=== PATIENT | female | born 1980 | race Two or more races ===

== ENCOUNTER 2024-10-12 14:31 | Inpatient (IN) | payer MEDICAID, OTHER ==
[~2024-10-12] VITALS: Ht 160 cm; Wt 70.0 kg
[2024-10-12] MEDS: MORPHINE SULFATE 4 MG/ML SYR/VIAL IV ONE ×3 (15:06→23:03)
[2024-10-12] MEDS: ONDANSETRON HCL 4 MG/2 ML VIAL IV ONE ×3 (15:06→23:02)
--- NOTE | 2024-10-12 15:13 | ED.PDOC ---
GI ASSESSMENT HPI Comments 43 y/o F, BIBA, with PMHx of uterine fibroids and ovarian cyst presents to the ED for CC of abdominal pain. 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 Per EMS, upon arrival to scene patient was found profusely diaphoretic and lethargic c/o 10/10 abdominal pain. In route to the ED, patient was given 4mg of Zofran IV and 1g Tylenol with no improvement of symptoms. Patient relays, that she does not know if she is currently and is concerned of possible ectopic , d/t x2 previous miscarriages in the past. Patient denies dizziness, headache, abdominal cramping, vaginal discharge, or melena. No other symptoms or modifying factors are present at this time. Time Seen by MD: 14:45 Reviewed Notes: Nurses Notes, Plastic Mixer Notes, Medications, Allergies Allergies: Coded Allergies: NO KNOWN ALLERGIES (Unverified , 10/12/24) Information Source: Patient Mode of Arrival: EMS Timing: Minutes Duration: Since onset Prehospital treatment: None Quality: None Vomitus: Watery Stool: Normal Severity: Moderate Recent: None Recent Hx of: None Pain Location: LLQ Modifying Factors: Nothing Associated sign and symptoms: Nausea, Vomiting, Abdominal Pain Past Medical History PAST MEDICAL HISTORY: Anemia Surgical History: Denies all surgeries FEED GRINDER History: Ovarian Cysts, Uterine Fibroids Family History Family History: Family hx of DM, Family hx of heart clarissa Social History Smoker: Cigarettes Alcohol: Occasionally Drugs: Marijuana Lives In: Home Constitutional: reports: sweats; denies: chills, diaphoresis, fatigue, fever, malaise, weakness, others EENTM: denies: blurred vision, double vision, ear bleeding, ear discharge, ear drainage, ear pain, ear ringing, eye pain, eye redness, hearing loss, mouth pain, mouth swelling, nasal discharge, nose bleeding, nose congestion, nose pain, photophobia, tearing, throat pain, throat swelling, voice changes, others Respiratory: denies: cough, hemoptysis, orthopnea, SOB at rest, shortness of breath, SOB with excertion, stridor, wheezing, others Cardiovascular: denies: chest pain, dizzy spells, diaphoresis, Dyspnea on exertion, edema, irregular heart beat, left arm pain, lightheadedness, palpitations, PND, syncope, others Gastrointestinal: reports: abdominal pain, nausea, vomiting; denies: abdomen distended, blood streaked bowels, constipated, diarrhea, dysphagia, difficulty swallowing, hematemesis, melena, poor appetite, poor fluid intake, rectal bl eeding, rectal pain, others Genitourinary: denies: abnormal vagina bleeding, burning, dyspareunia, dysuria, flank pain, frequency, hematuria, incontinence, pain, , vagina discharge, urgency, others Neurological: denies: dizziness, fainting, headache, left sided numbness, left sided weakness, numbness, paresthesia, pre-existing deficit, right sided numbness, right sided weakness, seizure, speech problems, tingling, tremors, weakness, others Musculoskeletal: denies: back pain, gout, joint pain, joint swelling, muscle pain, muscle stiffness, neck pain, others Integumetry: denies: bruises, change in color, change in hair/nails, dryness, laceration, lesions, lumps, rash, wounds, others Allergic/Immunocompromised: denies: Difficulty Healing, Frequent Infections, Hives, Itching, others Hematologic/Lymphatic: denies: anemia, blood clots, easy bleeding, easy bruising, swollen glands, others Endocrine: denies: excessive hunger, excessive sweating, excessive thirst, excessive urination, flushing, intolerance to cold, intolerance to heat, unexplained weight gain, unexplained weight loss, others Psychiatric: denies: anxiety, bipolar disorder, depression, hopeless, panic disorder, schizophrenia, sleepless, suicidal, others All Other Systems: Reviewed and Negative Physical Exam General Appearance: Moderate Distress HEENT: Normal ENT Inspection, Pharynx Normal, TMs Normal Neck: Full Range of Motion, Non-Tender, Normal, Normal Inspection Respiratory: Chest Non-Tender, Lungs Clear, No Accessory Muscle Use, No Respiratory Distress, Normal Breath Sounds Cardiovascular: No Edema, No JVD, No Murmur, No Gallop, Normal Peripheral Pulses, Regular Rate/Rhythm Breast Exam: Deferred Gastrointestinal: No Organomegaly, No Pulsatile Mass, Normal Bowel Sounds, Soft, Suprapubic, Tenderness Genitalia: Deferred Pelvic: Deferred Rectal: Deferred Extremities: No calf tenderness, Normal capillary refill, Normal inspection, Normal range of motion, Non-tender, No pedal edema Musculoskeletal : Apperance: Normal Neurologic: Alert, television host II-XII nml as Tested, Motor Weakness, Normal Affect, Normal Mood, No Sensory Deficits Cerebellar Function: Normal Reflexes: Normal Skin: Dry, Normal Color, Warm Lymphatic: No Adenopathy Was a procedure done? Was a procedure done?: No GI differential Dx Differential Diagnosis: Diverticular disease, Inflammatory BD, UTI, Urolithiasis, , Other (UTERINE FIBROID, ECTOPIC ) X-Ray, Labs, Meds, VS Vital Signs Date Time Temp Pulse Resp B/P (MAP) Pulse Ox O2 Delivery O2 Flow Rate FiO2 10/12/24 17:22 68 17 117/60 10/12/24 15:36 68 17 117/60 10/12/24 15:35 98.1 68 17 117/60 (79) 98 98.1 10/12/24 15:06 106 24 136/116 10/12/24 15:05 98.1 106 24 136/116 (123) 98 98.1 10/12/24 14:31 98.1 106 24 136/116 98 98.1 Lab Test 10/12/24 15:01 Range/Units White Blood Count 9.6 4.4-10.8 10^3/uL Red Blood Count 5.10 4.0-5.20 10^6/uL Hemoglobin 8.3 L 12.2-16.2 g/dL Hematocrit 28.6 L 36.0-46.0 % Mean Corpuscular Volume 56.2 L 80.0-100.0 fL Mean Corpuscular Hemoglobin 16.4 L 28.0-32.0 pg Mean Corpuscular Hemoglobin Concent 29.1 L 32.0-36.0 g/dL Red Cell Distribution Width 21.2 H 11.8-14.3 % Platelet Count 526 H 140-450 10^3/uL Mean Platelet Volume 8.1 6.9-10.8 fL Neutrophils (%) (Auto) 77.1 37.0-80.0 % Lymphocytes (%) (Auto) 14.2 10.0-50.0 % Monocytes (%) (Auto) 4.1 0.0-12.0 % Eosinophils (%) (Auto) 4.1 0.0-7.0 % Basophils (%) (Auto) 0.5 0.0-2.0 % Neutrophils # (Auto) 7.4 1.6-8.6 10 ^3/uL Lymphocytes # (Auto) 1.4 0.4-5.4 10 ^3/uL Monocytes # (Auto) 0.4 0-1.3 10 ^3/uL Eosinophils # (Auto) 0.4 0-0.8 10 ^3/uL Basophils # (Auto) 0 0-0.2 10 ^3/uL Nucleated Red Blood Cells 0.0 % Platelet Estimate Increased Hypochromasia (manual) Marked Anisocytosis (manual) Slight Microcytosis Marked Sodium Level 141 136-145 mmol/L Potassium Level 3.5 3.5-5.1 mmol/L Chloride Level 108 H 98-107 mmol/L Carbon Dioxide Level 20 20-31 mmol/L Anion Gap 13 5-15 Blood Urea Nitrogen 8 L 9-23 mg/dL Creatinine 0.62 0.550-1.02 mg/dL Glomerular Filtration Rate Calc 115 >90 mL/min BUN/Creatinine Ratio 12.9 10.0-20.0 Serum Glucose 115 H 74-106 mg/dL Calcium Level 8.5 L 8.7-10.4 mg/dL Beta HCG, Quantitative 0.1 L 1.5-4.2 mIU/mL Current Medications Medications (Trade) Dose Ordered Sig/Hay Route Start Time Stop Time Status Last Admin Ondansetron HCl (Zofran) 4 mg ONCE ONCE IV 10/12/24 14:45 10/12/24 14:47 DC 10/12/24 15:06 Morphine Sulfate 4 mg ONCE ONCE IV 10/12/24 14:45 10/12/24 14:47 DC 10/12/24 15:06 Morphine Sulfate 4 mg ONCE ONCE IV 10/12/24 17:30 10/12/24 17:31 DC 10/12/24 17:22 Ondansetron HCl (Zofran) 4 mg ONCE ONCE IV 10/12/24 17:30 10/12/24 17:31 DC 10/12/24 17:22 IV Hep-Lock was established The patient was given Zofran 4 mg IV push for the nausea and vomiting The patient was given morphine 4 mg IV push for the pain The patient is still having persistent pain so the dose of morphine and Zofran was repeated The patient's CBC shows a hemoglobin of 8.3 and hematocrit 28.6 The chemistry panel is within normal limits The pelvic ultrasound shows: PELVIC US: IMPRESSION: 1. Small intramural fibroid in the uterus measuring 1.9 x 2.5 x 1.2 cm 2. Follicles in both ovaries. We are consulting Dr. Steele at this time. Images Reviewed?: Images reviewed and evaluated by me Time of 1ST Reevaluation: 15:15 Reevaluation 1ST: Unchanged Patient Education/Counseling: Diagnosis, Treatment, Prognosis Family Education/Counseling: No Family Present SEPSIS Sepsis Screen Physician Orders Urinalysis (10/12/24 14:45) Heplock Iv (10/12/24 14:45) Pelvic (10/12/24 14:45) Transvaginal Us Non Ob (10/12/24 16:22) Vital Signs Date Time Temp Pulse Resp B/P (MAP) Pulse Ox O2 Delivery O2 Flow Rate FiO2 10/12/24 17:22 68 17 117/60 10/12/24 15:36 68 17 117/60 10/12/24 15:35 98.1 68 17 117/60 (79) 98 98.1 10/12/24 15:06 106 24 136/116 10/12/24 15:05 98.1 106 24 136/116 (123) 98 98.1 10/12/24 14:31 98.1 106 24 136/116 98 98.1 Laboratory Tests Test 10/12/24 15:01 White Blood Count 9.6 10^3/uL (4.4-10.8) Medications Medications Dose Ordered Sig/Hay Route Start Time Stop Time Status Last Admin Dose Admin Morphine Sulfate 4 mg ONCE ONCE IV 10/12/24 14:45 10/12/24 14:47 DC 10/12/24 15:06 Morphine Sulfate 4 mg ONCE ONCE IV 10/12/24 17:30 10/12/24 17:31 DC 10/12/24 17:22 Ondansetron HCl 4 mg ONCE ONCE IV 10/12/24 14:45 10/12/24 14:47 DC 10/12/24 15:06 Ondansetron HCl 4 mg ONCE ONCE IV 10/12/24 17:30 10/12/24 17:31 DC 10/12/24 17:22 Departure 1 Departure Time of Disposition: 17:48 Impression: Primary Impression: Intractable abdominal pain Additional Impressions: Abnormal vaginal bleeding Severe anemia Uterine fibroid Qualified Codes: D25.1 - Intramural leiomyoma of uterus Disposition: ADMITTED INPATIENT Admit to: Med Surg Condition: Fair Critical Care Note Critical Care Time?: No Stability Stability form required: Yes Unstable for transfer: ED Physician Assesment (Clinical assesment) Heart Score Heart Score: Heart Score Response (Comments) Value History N/A 0 EKG N/A 0 Age N/A 0 Risk Factors N/A 0 Troponin N/A 0 Total 0 I personally scribed for NATALIE SCHNEIDER MD ([email or web address]) on 10/12/24 at 15:13. Electronically submitted by Odalys Aleman ([email or web address]). I personally scribed for NATALIE SCHNEIDER MD ([email or web address]) on 10/12/24 at 15:13. Electronically submitted by Odalys Aleman ([email or web address]). I personally scribed for NATALIE SCHNEIDER MD ([email or web address]) on 10/12/24 at 17:51. Electronically submitted by Odalys Aleman ([email or web address]). NATALIE SCHNEIDER MD Oct 12, 2024 15:13
[2024-10-12 15:24] LABS: Mean Corpuscular Hemoglobin 16.4 pg (28.0-32.0); Nucleated Red Blood Cells % 0.0 %
[2024-10-12 15:26] LABS: Hematocrit 28.6 % (36.0-46.0); Hemoglobin 8.3 g/dL (12.2-16.2); Mean Corpuscular Volume 56.2 fL (80.0-100.0)
[2024-10-12 15:33] LABS: Chloride 108 mmol/L (98-107); Potassium 3.5 mmol/L (3.5-5.1); Sodium 141 mmol/L (136-145)
[2024-10-12 15:34] LABS: Anion Gap 13 (5-15); Carbon Dioxide 20 mmol/L (20-31)
[2024-10-12 15:36] LABS: Calcium 8.5 mg/dL (8.7-10.4)
[2024-10-12 15:39] LABS: BUN/Creatinine Ratio 12.9 (10.0-20.0)
[2024-10-12 15:54] LABS: Blood Urea Nitrogen 8 mg/dL (9-23); Glucose 115 mg/dL (74-106)
--- NOTE | 2024-10-12 17:05 | DVH ---
INDICATION: pain TECHNIQUE: Multiple real-time grayscale transabdominal and transvaginal sonographic images along with color and duplex Doppler of the uterus and ovaries were obtained. COMPARISON: None FINDINGS: The uterus measures 8.5 x 4.6 x 4.5 cm. There is a intramural mass measuring 1.9 by 2.5 x 1 .2 cm consistent with an intramural fibroid. The endometrial stripe measures 13 mm. The right ovary measures 5 x 5.1 by 3.3 cm. There is a anechoic mass in the right ovary measuring 3 x 1.9 x 3 cm consistent with a follicle or cyst. cm. The left ovary measures 3.5 x 3.8 x 2.6 cm. There is an anechoic mass in the left ovary measuring 1.2 x 1.4 x 0.9 cm consistent with a follicle. cm. Subsequent color and duplex Doppler interrogation of the ovaries demonstrated symmetric vascular flow to both ovaries, though this does not exclude the possibility of torsion due to the dual blood suppl y. IMPRESSION: 1. Small intramural fibroid in the uterus measuring 1.9 x 2.5 x 1.2 cm 2. Follicles in both ovaries.
[2024-10-12 17:15] LABS: Anisocytosis Slight
[2024-10-12 22:55] VITALS: PULSE 61; RESP 18; O2SAT 100
[2024-10-12] MEDS ORDERED: DOCUSATE SOD 100 MG CAP PO PRN (23:15)
[2024-10-12 23:39] LABS: Iron 15.0 ug/dL (50-170)
[2024-10-12 23:40] LABS: Total Iron Binding Capacity 387.0 ug/dL (250-425)
[2024-10-12 23:57] LABS: INR 1.0 (0.9-1.15); Prothrombin Time 10.6 sec (9.3-11.8)
[2024-10-13] LABS: Alanine Aminotransferase 19.0 U/L (7-40); Albumin 3.8 g/dL (3.2-4.8); Alkaline Phosphatase 81.0 U/L (46-116); Bilirubin, Direct 0.1 mg/dL (<0.3); Bilirubin, Total 0.4 mg/dL (0.2-1.0); Total Protein 7.2 g/dL (5.7-8.2)
[2024-10-13] MEDS: SODIUM CHLORIDE 0.9% 1,000 ML IV SCH (00:22)
--- NOTE | 2024-10-13 01:37 | DVHHPRES ---
History of Present Illness Resident Creating Document: LIZET NAGY RESIDENT History of Present Illness Mimi Curry is a 43-year-old female with past medical history of chronic anemia status post 1 blood transfusion , uterine fibroids, ovarian cyst, IBS came to the ED with chief complaints of lower left quadrant pain which was 10/10 in intensity, stabbing in nature, sudden, associated with nausea and 2 times vomiting, radiating to the back started this morning. patient reports that she has been bleeding heavily With clots since 2 weeks. She states that her periods are regular normally 5 days and bleeds heavily for 3 days since she was 14 years old. Patient also states she had 2 previous miscarriages. Patient feels dizzy, tired every time she Menstruates. Patient states that the ovarian cyst was previously there but fibroid is new. Pelvic ultrasound showed Small intramural fibroid in the uterus measuring 1.9 x 2.5 x 1.2 cm, Follicles in b oth ovaries. OBGYN consulted. test was negative. past surgical history: L5, S1 discectomy family history: multiple hysterectomy is in family personal history: 1-2 cigarettes per day, denies alcohol use, smokes marijuana every day lives with: family PCP: Dr. Hudson Review of Systems Constitutional: Yes: Weakness Eyes: No: Pain, Vision change, Conjunctivae inflammation, Eyelid inflammation, Other, Redness ENT: No: Ear pain, Ear discharge, Nose pain, Nose discharge, Nose congestion, Mouth pain, Mouth swelling, Throat pain, Throat swelling, Other Respiratory: No: Cough, Dry, Shortness of breath, SOB with excertion, Wheezing, Hemoptysis, Pleuritic Pain, Sputum, Wheezing, Other Cardiovascular: No: Chest Pain, Palpitations, Orthopnea, Paroxysmal Noc. Dyspnea, Edema, Lt Headedness, Other Gastrointestinal: Nausea, Vomiting, Abdominal Pain; No: Diarrhea, Constipation, Melena, Hematochezia, Other Genitourinary: No Dysuria, No Frequency, No Incontinence, No Hematuria, No Retention, No Other Musculoskeletal: No: other, neck pain, shoulder pain, arm pain, back pain, hand pain, leg pain, foot pain Skin: No: Rash, Lesions, Jaundice, Bruising, Other Neurological: No: Weakness, Numbness, Incoordination, Change in speech, Confusion, Seizures, Other Allergies: Coded Allergies: NO KNOWN ALLERGIES (Unverified , 10/12/24) Medications Current Medications Medications Dose Ordered Sig/Hay Route Start Time Stop Time Status Last Admin Dose Admin Sodium Chloride 1,000 ml @ 60 mls/hr [id number] IV 10/12/24 23:15 Acetaminophen/ Hydrocodone Bitart 1 tab Q4HP PRN PO 10/12/24 23:15 Ondansetron HCl 4 mg Q4HP PRN IV 10/12/24 23:15 Docusate Sodium 100 mg BIDPRN PRN PO 10/12/24 23:15 Exam Vital Signs Vital Signs Date Time Temp Pulse Resp B/P (MAP) Pulse Ox O2 Delivery O2 Flow Rate FiO2 10/12/24 23:03 61 18 127/75 10/12/24 22:55 100 10/12/24 22:55 Room Air* 0 21 10/12/24 18:30 97.9 97.9 Exam General: Patient alert and oriented in person, place and time. Patient following commands. In moderate distress HEENT: Normocephalic, atraumatic, moist mucous membranes Respiratory/pulmonary: Clear lungs bilaterally, vesicular murmurs present in almost all lung [place], no associated crackles or wheezes. Cardiovascular: Normal heart sounds S1 and S2 with no associated murmurs Abdomen: Left lower quadrant tenderness on palpation Extremities: Mild B/L edema Peripheral Pulses: 3+ Radial (R). 3+ Radial (L). 3+ Dorsalis pedis (R). 3+ Dorsalis pedis(L) Skin: No rashes or pruritus, there is no sacral edema present at this time. Neurological: Intact cranial nerves with no focal neurologic deficits Psych, mood: Normal psych Labs/Xrays Labs Test 10/12/24 23:34 10/12/24 15:01 Range/Units Prothrombin Time 10.6 9.3-11.8 sec Prothrombin Time INR 1.00 0.9-1.15 Total Bilirubin 0.4 0.2-1.0 mg/dL Direct Bilirubin 0.1 <0.3 mg/dL Aspartate Amino Transferase (AST) 14 13-40 U/L Alanine Aminotransferase (ALT) 19 7-40 U/L Alkaline Phosphatase 81 46-116 U/L Total Protein 7.2 5.7-8.2 g/dL Albumin 3.8 3.2-4.8 g/dL White Blood Count 9.6 4.4-10.8 10^3/uL Red Blood Count 5.10 4.0-5.20 10^6/uL Hemoglobin 8.3 L 12.2-16.2 g/dL Hematocrit 28.6 L 36.0-46.0 % Mean Corpuscular Volume 56.2 L 80.0-100.0 fL Mean Corpuscular Hemoglobin 16.4 L 28.0-32.0 pg Mean Corpuscular Hemoglobin Concent 29.1 L 32.0-36.0 g/dL Red Cell Distribution Width 21.2 H 11.8-14.3 % Platelet Count 526 H 140-450 10^3/uL Mean Platelet Volume 8.1 6.9-10.8 fL Neutrophils (%) (Auto) 77.1 37.0-80.0 % Lymphocytes (%) (Auto) 14.2 10.0-50.0 % Monocytes (%) (Auto) 4.1 0.0-12.0 % Eosinophils (%) (Auto) 4.1 0.0-7.0 % Basophils (%) (Auto) 0.5 0.0-2.0 % Neutrophils # (Auto) 7.4 1.6-8.6 10 ^3/uL Lymphocytes # (Auto) 1.4 0.4-5.4 10 ^3/uL Monocytes # (Auto) 0.4 0-1.3 10 ^3/uL Eosinophils # (Auto) 0.4 0-0.8 10 ^3/uL Basophils # (Auto) 0 0-0.2 10 ^3/uL Nucleated Red Blood Cells 0.0 % Platelet Estimate Increased Hypochromasia (manual) Marked Anisocytosis (manual) Slight Microcytosis Marked Sodium Level 141 136-145 mmol/L Potassium Level 3.5 3.5-5.1 mmol/L Chloride Level 108 H 98-107 mmol/L Carbon Dioxide Level 20 20-31 mmol/L Anion Gap 13 5-15 Blood Urea Nitrogen 8 L 9-23 mg/dL Creatinine 0.62 0.550-1.02 mg/dL Glomerular Filtration Rate Calc 115 >90 mL/min BUN/Creatinine Ratio 12.9 10.0-20.0 Serum Glucose 115 H 74-106 mg/dL Calcium Level 8.5 L 8.7-10.4 mg/dL Iron Level 15 L 50-170 ug/dL Total Iron Binding Capacity 387 250-425 ug/dL Percent Iron Saturation 3.9 L 15-50 % Ferritin 3.0 L 10-291 ng/mL Beta HCG, Quantitative 0.1 L 1.5-4.2 mIU/mL SEPSIS Sepsis Screen Date sepsis recognized/suspect: Oct 12, 2024 Time Sepsis recognized/suspect: 1451 Recent Procedure: No On Antibiotic Therapy: No Respiratory Rate >20: Yes Heart Rate >90: Yes Temp<36 C (96.8 F) or >38.3 C: No SBP <90 or MAP <65 mmHG: No New Acute Mental Status Change: No Is the patient on CPAP, BIPAP,: No Physician Orders Admit (10/12/24 23:06) Allergies (10/12/24 23:06) Code Status (10/12/24 23:06) Sodium Chloride 0.9% (10/12/24 23:15) Hydrocodone-Acet 5/325mg Tab ([place] 5/32 (10/12/24 23:15) Ondansetron Hcl (Zofran) (10/12/24 23:15) Docusate Sodium Capsule (Colace Capsule) (10/12/24 23:15) Complete Blood Count (10/13/24 04:00) Comprehensive Metabolic Panel (10/13/24 04:00) Condition: Serious (10/12/24 23:06) Bedrest With Bathroom Privileg (10/12/24 23:06) Oxygen By Nasal Cannula (10/12/24 23:06) Notify Of Changes From Base (10/12/24 23:06) Emergency Dysrhythmia Protocol (10/12/24 23:06) * Diesel Engine I Pipe Fitter Consultation (10/12/24 23:11) Drug Screen (10/12/24 23:14) Regular Diet (10/13/24 Breakfast) Vital Signs Date Time Temp Pulse Resp B/P (MAP) Pulse Ox O2 Delivery O2 Flow Rate FiO2 10/12/24 23:03 61 18 127/75 10/12/24 22:55 61 18 127/75 (92) 100 10/12/24 22:55 61 18 100 Room Air* 0 21 10/12/24 18:30 97.9 63 12 100/45 (63) 98 97.9 10/12/24 17:52 63 12 100/45 Laboratory Tests Test 10/12/24 15:01 White Blood Count 9.6 10^3/uL (4.4-10.8) Medications Medications Dose Ordered Sig/Hay Route Start Time Stop Time Status Last Admin Dose Admin Morphine Sulfate 4 mg ONCE ONCE IV 10/12/24 14:45 10/12/24 14:47 DC 10/12/24 15:06 4 MG Morphine Sulfate 4 mg ONCE ONCE IV 10/12/24 17:30 10/12/24 17:31 DC 10/12/24 17:22 4 MG Morphine Sulfate 4 mg ONCE ONCE IV 10/12/24 23:00 10/12/24 23:01 DC 10/12/24 23:03 4 MG Ondansetron HCl 4 mg ONCE ONCE IV 10/12/24 14:45 10/12/24 14:47 DC 10/12/24 15:06 4 MG Ondansetron HCl 4 mg ONCE ONCE IV 10/12/24 17:30 10/12/24 17:31 DC 10/12/24 17:22 4 MG Ondansetron HCl 4 mg ONCE ONCE IV 10/12/24 23:00 10/12/24 23:01 DC 10/12/24 23:02 4 MG Assessment/Plan Assessment/Plan # Intractable abdominal pain possibly due to uterine fibroid # uterine fibroid # HX of ovarian cyst # Abnormal vaginal bleeding likely due to Fibroid # HX of x2 miscarriages - pelvic ultrasound showed The uterus measures 8.5 x 4.6 x 4.5 cm. There is a intramural mass measuring 1.9 by 2.5 x 1.2 cm consistent with an intramural fibroid. The endometrial stripe measures 13 mm. Follicles in both ovaries. - consulted OBGYN - cg negative - # rule out GI bleed - stool occult blood ordered, pending - if present consult GI # severe chronic microcytic anemia -ordered iron panel - IV iron - transfuse if HB <7 # rule out Pancreatitis - lipase ordered, - Abd CT ordered # rule out Hypothyroidism - TSH ordered # reactive thrombocytosis # history of IBD # Nicotine Abuse # marijuana abuse - patient counseled on cessation of marijuana, and smoking for 13 minutes NPO PPI prophylaxis: Pantoprazole 40 mg BID DVT prophylaxis: Not indicated Goals of care addressed with the patient for more than 31 minutes: Full code status Case discussed with , patient and nurse Plan discussed with: Patient My Orders Orders - LIZET NAGY Procedure Category Date Status Time Admit ADMIT 10/12/24 Transmitted 23:06 Allergies BUSHRA 10/12/24 In Process 23:06 Code Status CODE 10/12/24 Transmitted 23:06 Sodium Chloride 0.9% PHA 10/12/24 In Process 23:15 Hydrocodone-Acet PHA 10/12/24 In Process 5/325mg Tab ([place] 23:15 Ondansetron Hcl PHA 10/12/24 In Process (Zofran) 23:15 Docusate Sodium PHA 10/12/24 In Process Capsule (Colace 23:15 Complete Blood Count LAB 10/13/24 Logged 04:00 Comprehensive LAB 10/13/24 Logged Metabolic Panel 04:00 Condition: Serious BUSHRA 10/12/24 In Process 23:06 Bedrest With Bathroom BUSHRA 10/12/24 In Process Privileg 23:06 Oxygen By Nasal RT 10/12/24 Transmitted Cannula 23:06 Notify Of Changes BUSHRA 10/12/24 In Process From Base 23:06 Emergency Dysrhythmia BUSHRA 10/12/24 In Process Protocol 23:06 * Diesel Engine I Pipe Fitter Consultation CONS 10/12/24 Transmitted 23:11 Drug Screen LAB 10/12/24 Logged 23:14 Regular Diet DIET 10/13/24 Transmitted Breakfast Date of Service: Oct 13, 2024 Billing Provider: NAI DOVE MD Common Visit Codes: 80068-ZSYAUDN INP/OBS CARE (HIGH) Secondary Visit Codes: 98436-CEYNFUEH CARE PLAN 30 MINUTES LIZET NAGY Oct 13, 2024 01:37
[2024-10-13] MEDS: PANTOPRAZOLE 40 MG/10 ML VIAL INJ IV ONE (05:31)
[2024-10-13] MEDS: HYDROcodone-ACET 5/325MG TAB PO PRN (05:41)
--- NOTE | 2024-10-13 06:25 | DVH ---
Exam: CT CT AB PEL WO CON-NO ORAL OR IV History: rule out intraabdominal mass and collection, details s Comparison Study: US PELVIC on DOS: 10/12/24 Technique: Multidetector spiral CT of the abdomen was performed from lung bases to pubic symphysis. I maging was performed without IV contrast. Axial, coronal and sagittal multiplanar reformats were obta ined from the axial data set by the technologist. Radiation Dose : 1. Abdomen/Pelvis: CTDIvol 24.79 mGy, DLP 1313.18 mGy*cm. Findings: Evaluation of solid organs is limited due to lack of intravenous contrast use. Lung Bases: No acute or significant lung base finding. Normal heart size. No pleural or pericardial effusion. Liver: The liver is normal in size. Hepatic steatosis. No focal lesions. Gallbladder and Biliary Tree: Unremarkable Spleen: Unremarkable Pancreas: The pancreas is grossly normal in appearance. Adrenal Glands: 1.9 cm left adrenal nodule. Kidneys: Kidneys are grossly normal without calculi or hydronephrosis. Bladder: Grossly unremarkable for degree of distention. Bowel: The stomach is grossly normal in appearance. Small bowel and colon are normal in caliber and d istribution. The appendix is normal. Ascites: Absent Lymphadenopathy: No mesenteric, retroperitoneal or periportal lymphadenopathy. Abdominal Wall and Mesentery: Unremarkable. Vasculature: The visualized abdominal aorta is normal in size and caliber. Evaluation of abdominal a nd pelvic vessels is limited due to lack of intravenous contrast. Pelvic Organs: Bilateral hypoattenuating cystic adnexal structures of near water attenuation measurin g 3.5 cm on the right and 2.0 cm on the left. Musculoskeletal: No aggressive focal bony lesions, acute fractures or dislocation. IMPRESSION: 1. No acute abdominal or pelvic findings. 2. Probable left adrenal adenoma. 3. Bilateral ovarian cysts. Radiation optimization: All CT scans at this facility use at least one of these dose optimization eloise hniques: automated exposure control mA and/or kV adjustment per patient size (includes targeted exam s where dose is matched to clinical indication) or iterative reconstruction.
[2024-10-13 07:37] LABS: Mean Corpuscular Hemoglobin 16.7 pg (28.0-32.0); Mean Corpuscular Volume 55.5 fL (80.0-100.0); Nucleated Red Blood Cells % 0.0 %
[2024-10-13 07:46] LABS: Hematocrit 25.8 % (36.0-46.0)
[2024-10-13 07:47] LABS: Hemoglobin 7.7 g/dL (12.2-16.2)
[2024-10-13 07:54] LABS: Alanine Aminotransferase 22 U/L (7-40); Albumin 3.8 g/dL (3.2-4.8); Alkaline Phosphatase 79 U/L (46-116); Anion Gap 10 (5-15); BUN/Creatinine Ratio 13.8 (10.0-20.0); Carbon Dioxide 24 mmol/L (20-31); Chloride 106 mmol/L (98-107); Glucose 106 mg/dL (74-106); Potassium 3.7 mmol/L (3.5-5.1); Sodium 140 mmol/L (136-145); Total Protein 7.1 g/dL (5.7-8.2)
[2024-10-13 07:55] LABS: Bilirubin, Total 0.4 mg/dL (0.2-1.0)
[2024-10-13 07:59] LABS: Blood Urea Nitrogen 8 mg/dL (9-23); Calcium 8.0 mg/dL (8.7-10.4)
[2024-10-13 09:03] VITALS: PULSE 67; RESP 16; O2SAT 97
[2024-10-13 10:09] VITALS: BP 105/49; PULSE 63; RESP 17; RESP 18; TEMP 98.6; O2SAT 97
[2024-10-13] MEDS: MORPHINE SULFATE INJ 2 MG/ml SYRG IV PRN (11:05)
[2024-10-13] MEDS: PANTOPRAZOLE 40 MG/10 ML VIAL INJ IV SCH (11:51)
[2024-10-13] MEDS: IRON SUCROSE COMPLEX 110 ML IV SCH (11:51)
--- NOTE | 2024-10-13 14:00 | DVHINCON2 ---
Date of service: Oct 13, 2024 Referring Physician hospitalist Reason for Consultation menorrhagia with anemia History of Present Illness pt is admitted for abd pain,sono reveals 8wks size uterus.her hgb is 8 and she reports heavy bleeding all the time.her last pap was in 2022 she has not addressed her menorrhagia with any road driver Past Medical History ibs,fibroid uterus and blood transfusion Past Surgical History back surgery Family History na Social History 2 sab Patient Family History: Diabetes mellitus G8 MOTHER, Onset:40s - 50 Hypertension G8 FATHER, Onset:40s - 50 Allergies: Coded Allergies: NO KNOWN ALLERGIES (Unverified , 10/12/24) Current Medications Current Medications Medications (Trade) Dose Ordered Sig/Hay Route PRN Reason Start Time Stop Time Status Last Admin Sodium Chloride 1,000 ml @ 60 mls/hr [id number] IV 10/12/24 23:15 Acetaminophen/ Hydrocodone Bitart ([place] 5/325MG Tab) 1 tab Q4HP PRN PO MODERATE PAIN (4-6 PAIN SCALE) 10/12/24 23:15 Hold 10/13/24 05:41 Ondansetron HCl (Zofran) 4 mg Q4HP PRN IV NAUSEA / VOMITING 10/12/24 23:15 Docusate Sodium (Colace Capsule) 100 mg BIDPRN PRN PO FOR CONSTIPATION 10/12/24 23:15 Pantoprazole Sodium (Protonix) 40 mg DAILY IV 10/14/24 10:00 10/13/24 04:32 DC Pantoprazole Sodium (Protonix) 40 mg BID IV 10/13/24 10:00 10/13/24 11:51 Iron Sucrose 110 ml @ 110 mls/hr DAILY@1200 IV 10/13/24 12:00 10/13/24 12:12 DC 10/13/24 11:51 Morphine Sulfate 2 mg Q4HPRN PRN IV MODERATE PAIN (4-6 PAIN SCALE) 10/13/24 10:30 10/13/24 11:05 Ferrous Sulfate 325 mg BIDWM PO 10/13/24 18:00 Review of Systems Constitutional: no fever, chill, weight loss HEENT: no eye pain, no hearing loss, no oral lesion, no scleral icterus Heart: no chest pain, no chest pressure Lung: no cough, no dyspnea with exertion Abdomen: see HPI : no pain with urination, normal appearing urine Musculoskeletal: no joint pain, no muscle pain Neurological: no seizure, no loss of sensation, no weakness in extremities Pysch: no depression, no anxiety Derm: no rash, no jaundice Vital Signs Vital Signs Date Time Temp Pulse Resp B/P (MAP) Pulse Ox O2 Delivery O2 Flow Rate FiO2 10/13/24 11:35 78 18 128/78 10/13/24 10:09 98.6 97 98.6 10/13/24 10:09 Room Air* 0 21 Physical Exam SKIN: [nl] HEENT: [pale] NECK: [nl] CARDIAC: [rrr] PULMONARY: [cta] ABDOMEN: [soft,no rebound ,some tenderness ] pelvic-vag some mild bleeding noted ,vag nl,cx nl,uterus 8wks size,adenxa nt ext-no cce Labs/Diagnostic Data Labs Test 10/13/24 09:35 10/13/24 07:20 10/12/24 23:34 10/12/24 15:01 Range/Units Lactic Acid Level 1.1 0.4-2.0 mmol/L White Blood Count 7.5 4.4-10.8 10^3/uL Red Blood Count 4.64 4.0-5.20 10^6/uL Hemoglobin 7.7 L 12.2-16.2 g/dL Hematocrit 25.8 L 36.0-46.0 % Mean Corpuscular Volume 55.5 L 80.0-100.0 fL Mean Corpuscular Hemoglobin 16.7 L 28.0-32.0 pg Mean Corpuscular Hemoglobin Concent 30.0 L 32.0-36.0 g/dL Red Cell Distribution Width 21.1 H 11.8-14.3 % Platelet Count 460 H 140-450 10^3/uL Mean Platelet Volume 8.2 6.9-10.8 fL Neutrophils (%) (Auto) 64.4 37.0-80.0 % Lymphocytes (%) (Auto) 21.4 10.0-50.0 % Monocytes (%) (Auto) 6.0 0.0-12.0 % Eosinophils (%) (Auto) 7.4 H 0.0-7.0 % Basophils (%) (Auto) 0.8 0.0-2.0 % Neutrophils # (Auto) 4.8 1.6-8.6 10 ^3/uL Lymphocytes # (Auto) 1.6 0.4-5.4 10 ^3/uL Monocytes # (Auto) 0.5 0-1.3 10 ^3/uL Eosinophils # (Auto) 0.6 0-0.8 10 ^3/uL Basophils # (Auto) 0.1 0-0.2 10 ^3/uL Nucleated Red Blood Cells 0.0 % Reticulocyte Count (auto) 1.70 H 0.5-1.5 % Activated Partial Thromboplast Time 25.4 24.5-34.5 SEC Sodium Level 140 136-145 mmol/L Potassium Level 3.7 3.5-5.1 mmol/L Chloride Level 106 98-107 mmol/L Carbon Dioxide Level 24 20-31 mmol/L Anion Gap 10 5-15 Blood Urea Nitrogen 8 L 9-23 mg/dL Creatinine 0.58 0.550-1.02 mg/dL Glomerular Filtration Rate Calc 117 >90 mL/min BUN/Creatinine Ratio 13.8 10.0-20.0 Serum Glucose 106 74-106 mg/dL Calcium Level 8.0 L 8.7-10.4 mg/dL Total Bilirubin 0.4 0.2-1.0 mg/dL Aspartate Amino Transferase (AST) 14 13-40 U/L Alanine Aminotransferase (ALT) 22 7-40 U/L Alkaline Phosphatase 79 46-116 U/L Lactate Dehydrogenase 122 120-246 U/L Total Protein 7.1 5.7-8.2 g/dL Albumin 3.8 3.2-4.8 g/dL Lipase 27 12-53 U/L Vitamin B12 Level 411 211-911 pg/mL Vitamin D 25-Hydroxy 16.6 L 30.0-100 ng/mL Folic Acid 25.57 >5.38 ng/mL Thyroid Stimulating Hormone (TSH) 2.65 0.55-4.78 uIU/mL Plasma/Serum Blood Alcohol < 3.0 <10 mg/dL Prothrombin Time 10.6 9.3-11.8 sec Prothrombin Time INR 1.00 0.9-1.15 Direct Bilirubin 0.1 <0.3 mg/dL Platelet Estimate Increased Hypochromasia (manual) Marked Anisocytosis (manual) Slight Microcytosis Marked Iron Level 15 L 50-170 ug/dL Total Iron Binding Capacity 387 250-425 ug/dL Percent Iron Saturation 3.9 L 15-50 % Ferritin 3.0 L 10-291 ng/mL Beta HCG, Quantitative 0.1 L 1.5-4.2 mIU/mL Primary Diagnosis abd pain menorrhagai with anemia Plan bleeding has dec substenitally ,she is a good candidate for endometrial ablation .pt needs pap smear,endometrial biopsy then follow by endometrial ablation .pt was instructed to follow up with us afetr dc home. we will follow pt with you thank you for this consultation Plan discussed with: Patient Visit Coding OBGYN Date of Service: Oct 13, 2024 Billing Provider: MATEO CABALLERO DO OCC THERAPY ASST Common Visit Codes: [id number] OBS CARE (HIGH) OCC THERAPY ASST Consultation Codes: [id number] CONSULT <110MIN MATEO CABALLERO DO Oct 13, 2024 14:00
[2024-10-13 17:00] VITALS: BP 118/82; PULSE 79; RESP 18; TEMP 98.2; O2SAT 99
[2024-10-13] MEDS: TRANEXAMIC ACID 1,000 MG in SODIUM CHL 0.9% 100 ML IV ONE (17:35)
[2024-10-13] MEDS: FERROUS SULFATE 325mg EC TAB PO SCH (18:05)
--- NOTE | 2024-10-13 18:57 | DVHPNRES ---
Progress Note Date Seen: Oct 13, 2024 Resident Creating Document: DIANE WEEMS RESIDENT Medical Necessity Reason Pt with a Central, PICC or Fol: No Subjective Review of Systems Mimi Curry is a 43-year-old female with past medical history of chronic anemia status post 1 blood transfusion , uterine fibroids, ovarian cyst, IBS came to the ED with chief complaints of lower left quadrant pain which was 10/10 in intensity, stabbing in nature, sudden, associated with nausea and 2 times vomiting, radiating to the back started this morning. patient reports that she has been bleeding heavily With clots since 2 weeks. She states that her periods are regular normally 5 days and bleeds heavily for 3 days since she was 14 years old. Patient also states she had 2 previous miscarriages. Patient feels dizzy, tired every time she Menstruates. Patient states that the ovarian cyst was previously there but fibroid is new. Pelvic ultrasound showed Small intramural fibroid in the uterus measuring 1.9 x 2.5 x 1.2 cm, Follicles in both ovaries. OBGYN consulted. test was negative. past surgical history: L5, S1 discectomy family history: multiple hysterectomy is in family personal history: 1-2 cigarettes per day, denies alcohol use, smokes marijuana every day lives with: family PCP: Dr. Hudson The patient was seen and examined at bedside. Overnight events were reviewed. She reports her abdominal pain improved, however, she is still bleeding, changing 1 or 2 pads every hour. She denies any chest pain, shortness of breath, fever or any other complaints today. Objective vital signs Vital Sign Date Time Temp Pulse Resp B/P (MAP) Pulse Ox O2 Delivery O2 Flow Rate FiO2 10/13/24 17:34 65 18 118/72 10/13/24 17:00 98.2 99 98.2 10/13/24 10:09 Room Air* 0 21 medications Current Medications Medications Dose Ordered Sig/Hay Route Start Time Stop Time Status Last Admin Dose Admin Sodium Chloride 1,000 ml @ 60 mls/hr [id number] IV 10/12/24 23:15 Acetaminophen/ Hydrocodone Bitart 1 tab Q4HP PRN PO 10/12/24 23:15 Hold 10/13/24 05:41 1 TAB Ondansetron HCl 4 mg Q4HP PRN IV 10/12/24 23:15 Docusate Sodium 100 mg BIDPRN PRN PO 10/12/24 23:15 Pantoprazole Sodium 40 mg BID IV 10/13/24 10:00 10/13/24 11:51 40 MG Morphine Sulfate 2 mg Q4HPRN PRN IV 10/13/24 10:30 10/13/24 17:34 2 MG Ferrous Sulfate 325 mg BIDWM PO 10/13/24 18:00 Examination General: Patient alert and oriented in person, place and time. Patient following commands. In moderate distress HEENT: Normocephalic, atraumatic, moist mucous membranes Respiratory/pulmonary: Clear lungs bilaterally, vesicular murmurs present in almost all lung [place], no associated crackles or wheezes. Cardiovascular: Normal heart sounds S1 and S2 with no associated murmurs Abdomen: Left lower quadrant tenderness on palpation Extremities: Mild B/L edema Peripheral Pulses: 3+ Radial (R). 3+ Radial (L). 3+ Dorsalis pedis (R). 3+ Dorsalis pedis(L) Skin: No rashes or pruritus, there is no sacral edema present at this time. Neurological: Intact cranial nerves with no focal neurologic deficits Psych, mood: Normal psych laboratory and microbiology Laboratory Tests 10/13/24 07:20 Test 10/13/24 07:20 Range/Units Serum Glucose 106 74-106 mg/dL Labs and/or images reviewed: Labs reviewed by me, Image(s) reviewed by me Problem List/Assessment/Plan Problem List/Assessment/Plan # Intractable abdominal pain possibly due to uterine fibroid # uterine fibroid # HX of ovarian cyst # Abnormal vaginal bleeding likely due to Fibroid # HX of x2 miscarriages -bleeding has decreased substantially. - pelvic ultrasound showed The uterus measures 8.5 x 4.6 x 4.5 cm. There is a intramural mass measuring 1.9 by 2.5 x 1.2 cm consistent with an intramural fibroid. The endometrial stripe measures 13 mm. Follicles in both ovaries. - consulted OBGYN: good candidate for endometrial ablation .pt needs pap smear,endometrial biopsy followed by endometrial ablation . Follow up with emergency dept tech after discharge. [place] [facility] [place] Abdomen pelvis CT: No acute abdominal or pelvic findings.Probable left adrenal adenoma.Bilateral ovarian cysts. # rule out GI bleed - stool occult blood ordered, pending - if present consult GI # severe chronic microcytic anemia -ordered iron panel - IV iron - transfuse if HB <7 # rule out Pancreatitis - lipase ordered, - Abd CT ordered # rule out Hypothyroidism - TSH ordered # reactive thrombocytosis Monitor # history of IBS Monitor # Nicotine Abuse # marijuana abuse - patient counseled on cessation of marijuana, and smoking for 13 minutes Clear liquid PPI prophylaxis: Pantoprazole DVT prophylaxis: Not indicated Goals of care discussed with the patient for more than 27 minutes: Full code status Case discussed with Dr. Hatch, patient and RN Plan discussed with: Patient, Other (RN) Date of Service: Oct 13, 2024 Billing Provider: RIVERA HATCH MD Common Visit Codes: [id number] INP/OBS CARE(HIGH) DIANE WEEMS RESIDENT Oct 13, 2024 18:57 WILLA HENDRIX RESIDENT Oct 16, 2024 01:03 RIVERA HATCH MD Oct 16, 2024 22:20
[2024-10-13 21:00] VITALS: BP 117/73; PULSE 78; RESP 18; TEMP 97.8; O2SAT 94
[2024-10-13] MEDS: ONDANSETRON HCL 4 MG/2 ML VIAL IV PRN (21:56)
[2024-10-14 05:00] VITALS: BP 111/73; PULSE 68; RESP 20; TEMP 97.9; O2SAT 97
[2024-10-14 07:00] LABS: Chloride 105 mmol/L (98-107); Potassium 3.6 mmol/L (3.5-5.1); Sodium 139 mmol/L (136-145)
[2024-10-14 07:01] LABS: Anion Gap 8 (5-15); Carbon Dioxide 26 mmol/L (20-31)
[2024-10-14 07:06] LABS: Glucose 101 mg/dL (74-106)
[2024-10-14 07:13] LABS: Hematocrit 26.9 % (36.0-46.0); Hemoglobin 8.0 g/dL (12.2-16.2); Mean Corpuscular Hemoglobin 16.7 pg (28.0-32.0); Mean Corpuscular Volume 56.1 fL (80.0-100.0); Nucleated Red Blood Cells % 0.1 %
[2024-10-14 07:26] LABS: BUN/Creatinine Ratio 12.7 (10.0-20.0); Blood Urea Nitrogen 8 mg/dL (9-23); Calcium 8.4 mg/dL (8.7-10.4)
[2024-10-14 09:00] VITALS: BP 100/70; PULSE 72; RESP 17; TEMP 97.6; O2SAT 98
[2024-10-14] MEDS ORDERED: FER325T PO (09:52)
[2024-10-14] MEDS ORDERED: DOCU-265 PO (09:52)
[2024-10-14] MEDS ORDERED: ERGO1CAP23 PO (09:53)
[2024-10-14] MEDS ORDERED: PANTOPRAZOLE 40 MG/10 ML VIAL INJ IV SCH (10:00)
[2024-10-14 12:37] VITALS: BP 100/62; PULSE 67; RESP 18; TEMP 97.7; O2SAT 99
[2024-10-14 12:38] VITALS: BP 100/62; PULSE 67; RESP 18; TEMP 97.7; O2SAT 99
--- NOTE | 2024-10-14 15:07 | DVHPNRES ---
Progress Note Date Seen: Oct 14, 2024 Resident Creating Document: DIANE WEEMS RESIDENT Medical Necessity Reason Pt with a Central, PICC or Fol: No Objective vital signs Vital Sign Date Time Temp Pulse Resp B/P (MAP) Pulse Ox O2 Delivery O2 Flow Rate FiO2 10/14/24 12:38 97.7 67 18 100/62 (75) 99 97.7 10/14/24 07:30 Room Air* 0 21 Total Intake and Output 10/13/24 10/13/24 10/14/24 15:00 23:00 07:00 Intake Total 275 ml 250 ml Balance 275 ml 250 ml medications Current Medications Medications Dose Ordered Sig/Hay Route Start Time Stop Time Status Last Admin Dose Admin Sodium Chloride 1,000 ml @ 60 mls/hr [id number] IV 10/12/24 23:15 10/14/24 08:28 60 MLS/HR Acetaminophen/ Hydrocodone Bitart 1 tab Q4HP PRN PO 10/12/24 23:15 Hold 10/13/24 05:41 1 TAB Ondansetron HCl 4 mg Q4HP PRN IV 10/12/24 23:15 10/14/24 05:06 4 MG Docusate Sodium 100 mg BIDPRN PRN PO 10/12/24 23:15 Pantoprazole Sodium 40 mg BID IV 10/13/24 10:00 10/13/24 11:51 40 MG Morphine Sulfate 2 mg Q4HPRN PRN IV 10/13/24 10:30 10/14/24 05:08 2 MG Ferrous Sulfate 325 mg BIDWM PO 10/13/24 18:00 10/14/24 08:21 325 MG laboratory and microbiology Laboratory Tests 10/14/24 06:04 Test 10/14/24 06:04 Range/Units Serum Glucose 101 74-106 mg/dL Problem List/Assessment/Plan Problem List/Assessment/Plan # Intractable abdominal pain possibly due to uterine fibroid # uterine fibroid # HX of ovarian cyst # Abnormal vaginal bleeding likely due to Fibroid # HX of x2 miscarriages -bleeding has decreased substantially. - pelvic ultrasound showed The uterus measures 8.5 x 4.6 x 4.5 cm. There is a intramural mass measuring 1.9 by 2.5 x 1.2 cm consistent with an intramural fibroid. The endometrial stripe measures 13 mm. Follicles in both ovaries. - consulted OBGYN: good candidate for endometrial ablation .pt needs pap smear,endometrial biopsy followed by endometrial ablation . Follow up with outreach analyst after discharge. - bhcg negative - Abdomen pelvis CT: No acute abdominal or pelvic findings.Probable left adrenal adenoma.Bilateral ovarian cysts. # rule out GI bleed - stool occult blood ordered, pending - if present consult GI # severe chronic microcytic anemia -ordered iron panel - IV iron - transfuse if HB <7 # rule out Pancreatitis - lipase ordered, - Abd CT ordered # rule out Hypothyroidism - TSH ordered # reactive thrombocytosis # history of IBD # Nicotine Abuse # marijuana abuse - patient counseled on cessation of marijuana, and smoking for 13 minutes Clear liquid PPI prophylaxis: Pantoprazole DVT prophylaxis: Not indicated Goals of care discussed with the patient for more than 27 minutes: Full code status Case discussed with Dr. Hatch, patient and RN My Orders My Orders Orders - DIANE WEEMS RESIDENT Procedure Category Date Status Time Discharge DISCHARGE 10/14/24 Transmitted 09:51 DIANE WEEMS RESIDENT Oct 14, 2024 15:07
--- NOTE | 2024-10-14 15:10 | DVHDSRES ---
Discharge Summary Date of Admission Resident Creating Document: DIANE WEEMS RESIDENT Oct 12, 2024 at 23:06 Date of Discharge: Oct 14, 2024 Admitting Diagnosis Intractable abdominal pain secondary to uterine fibroids Severe chronic microcytic anemia due to uterine fibroids bleeding History of IBS Labs/Diagnostic Data: Laboratory Results Test 10/14/24 06:04 10/13/24 09:35 10/13/24 07:20 10/12/24 23:34 White Blood Count 7.6 10^3/uL (4.4-10.8) Red Blood Count 4.79 10^6/uL (4.0-5.20) Hemoglobin 8.0 g/dL (12.2-16.2) Hematocrit 26.9 % (36.0-46.0) Mean Corpuscular Volume 56.1 fL (80.0-100.0) Mean Corpuscular Hemoglobin 16.7 pg (28.0-32.0) Mean Corpuscular Hemoglobin Concent 29.7 g/dL (32.0-36.0) Red Cell Distribution Width 21.4 % (11.8-14.3) Platelet Count 487 10^3/uL (140-450) Mean Platelet Volume 8.1 fL (6.9-10.8) Neutrophils (%) (Auto) 63.9 % (37.0-80.0) Lymphocytes (%) (Auto) 24.0 % (10.0-50.0) Monocytes (%) (Auto) 6.4 % (0.0-12.0) Eosinophils (%) (Auto) 5.3 % (0.0-7.0) Basophils (%) (Auto) 0.4 % (0.0-2.0) Neutrophils # (Auto) 4.8 10 ^3/uL (1.6-8.6) Lymphocytes # (Auto) 1.8 10 ^3/uL (0.4-5.4) Monocytes # (Auto) 0.5 10 ^3/uL (0-1.3) Eosinophils # (Auto) 0.4 10 ^3/uL (0-0.8) Basophils # (Auto) 0 10 ^3/uL (0-0.2) Nucleated Red Blood Cells 0.1 % Sodium Level 139 mmol/L (136-145) Potassium Level 3.6 mmol/L (3.5-5.1) Chloride Level 105 mmol/L (98-107) Carbon Dioxide Level 26 mmol/L (20-31) Anion Gap 8 (5-15) Blood Urea Nitrogen 8 mg/dL (9-23) Creatinine 0.63 mg/dL (0.550-1.02) Glomerular Filtration Rate Calc 114 mL/min (>90) BUN/Creatinine Ratio 12.7 (10.0-20.0) Serum Glucose 101 mg/dL (74-106) Calcium Level 8.4 mg/dL (8.7-10.4) Lactic Acid Level 1.1 mmol/L (0.4-2.0) Reticulocyte Count (auto) 1.70 % (0.5-1.5) Haptoglobin 189 mg/dL (42-296) Activated Partial Thromboplast Time 25.4 SEC (24.5-34.5) Total Bilirubin 0.4 mg/dL (0.2-1.0) Aspartate Amino Transferase (AST) 14 U/L (13-40) Alanine Aminotransferase (ALT) 22 U/L (7-40) Alkaline Phosphatase 79 U/L (46-116) Lactate Dehydrogenase 122 U/L (120-246) Total Protein 7.1 g/dL (5.7-8.2) Albumin 3.8 g/dL (3.2-4.8) Lipase 27 U/L (12-53) Vitamin B12 Level 411 pg/mL (211-911) Vitamin D 25-Hydroxy 16.6 ng/mL (30.0-100) Folic Acid 25.57 ng/mL (>5.38) Thyroid Stimulating Hormone (TSH) 2.65 uIU/mL (0.55-4.78) Plasma/Serum Blood Alcohol < 3.0 mg/dL (<10) Prothrombin Time 10.6 sec (9.3-11.8) Prothrombin Time INR 1.00 (0.9-1.15) Direct Bilirubin 0.1 mg/dL (<0.3) Test 10/12/24 15:01 Platelet Estimate Increased Hypochromasia (manual) Marked Anisocytosis (manual) Slight Microcytosis Marked Iron Level 15 ug/dL (50-170) Total Iron Binding Capacity 387 ug/dL (250-425) Percent Iron Saturation 3.9 % (15-50) Ferritin 3.0 ng/mL (10-291) Beta HCG, Quantitative 0.1 mIU/mL (1.5-4.2) Other Laboratory Tests 10/14/24 06:04 Brief Hx & Hospital Course: 43 year-old female with a past medical history of uterine fibroids, ovarian cysts, recurrent miscarriages, IBS presents to the ED with chief complaints of left lower quadrant pain and abnormal vaginal bleeding. Imaging revealed an intramural uterine fibroid measuring 1.9 x2.5x1.2 cm. Endometrial stripe was noted to measure 13 mm with follicles seen in both ovaries. Abdominal and pelvis CT showed no acute abdominal or pelvic findings but demonstrated a probable left adrenal adenoma and bilateral ovarian cysts. The patient was also found to have severe chronic microcytic anemia, for which an iron panel was ordered and transfusion was planned if hemoglobin dropped below 7 grams/dL. She received IV iron. Additional workup included stool occult blood test, lipase and thyroid function studies. She was counseled on cessation of marijuana and smoking. During hospitalization or symptoms improved with supportive management. document management analyst was consulted. She is to follow up with document management analyst for further evaluation including consideration for endometrial ablation or biopsy. On discharge she was hemodynamically stable, tolerating a clear liquid diet and her abdominal pain had improved. Pt is lying on bed General Appearance: Alert, Oriented X3, Cooperative, Mild distress HEENT: Atraumatic, Mucous membranes moist/pink Respiratory: Clear to auscultation, Normal air movement, No added sounds Cardiovascular: Regular rate, Normal S1, Normal S2, No murmurs Abdominal/ : Active bowel sounds, Soft, no distention, no tenderness Extremities: No edema, Normal pulses, No tenderness/swelling Skin: No Significant rash, except past surgical scars Neuro: Normal speech, sensorimotor deficits none Psych/Mental Status: Mental status NL, Mood NL Nurse was there as central office maintainer during examination Operations or Procedures CT abdomen pelvis: No acute abdominal or pelvic findings.Probable left adrenal adenoma.Bilateral ovarian cysts. Pelvis ultrasound: Small intramural fibroid in the uterus measuring 1.9 x 2.5 x 1.2 cm. Follicles in both ovaries. Condition at Discharge: Stable Final Diagnosis/Problems List Severe microcytic hypochromic anemia due to abnormal uterine bleeding - s/p IV iron infusion Intractable abdominal pain secondary to uterine fibroids Bilateral ovarian cysts Left adrenal adenoma IBS Recurrent miscarriages Nicotine abuse Discharge Disposition: Home Discharge Instruct/Medications Diet: Consistent carbohydrate Activity: No Restrictions, As Tolerated Follow Up/Referral: FU with PCP, OBGYN and process engineering intern Medications: as per EMR Scheduled Ergocalciferol (Vitamin D 15807 Unit), 50,000 UNIT PO QWEEKLY Ferrous Sulfate (Ferrous Sulfate), 325 MG PO BIDWM Scheduled PRN Docusate Sodium (Docusate Sodium), 100 MG PO BIDPRN PRN Discharge Statement: "Patient was advised to return to the ER or call 911 if any headaches, dizziness, shortness of breath, chest pain, abdominal pain, bleeding, fevers, or worsening of medical condition. Patient was counseled about treatment plan, medications, possible side effects, patientverbalized understanding. All questions were answered to the best of my ability. This discharge took greater then 30 minutes in planning, reviewing documentation, counseling the patient, and discussing with other team members." ASSESSMENT ASSESSMENT Assessment Microcytic hypochromic anemia due to fibroid uterus DIANE WEEMS RESIDENT Oct 14, 2024 15:10 WILLA HENDRIX RESIDENT Oct 16, 2024 01:07
== END 2024-10-14 14:07 | disposition home or self-care (01) | DRG 532 ==
LOC: ER 14:31 → EDBD 14:31 → EDSEX 14:31 → OVERFLOW 23:06 → EAST 10-13 22:25
PROVIDERS: ADMIT Student in an Organized Health Care Education/Training Program; ATTEND Student in an Organized Health Care Education/Training Program
DX: D25.1 Intramural leiomyoma of uterus (principal); D35.02 Benign neoplasm of left adrenal gland; F17.210 Nicotine dependence, cigarettes, uncomplicated; D50.0 Iron deficiency anemia secondary to blood loss (chronic); D75.838 Other thrombocytosis; I10 Essential (primary) hypertension; K58.9 Irritable bowel syndrome, unspecified; N83.202 Unspecified ovarian cyst, left side; N83.201 Unspecified ovarian cyst, right side; N96 Recurrent pregnancy loss; Z83.3 Family history of diabetes mellitus
CPT/HCPCS: 36415; 74176; 76830; 76856; 80048; 80053; 80076; 80320; 82306; 82607; 82728; 82746; 83010; 83540; 83550; 83605; 83615; 83690; 84443; 84702; 85025; 85045; 85610; 85730; 86880; 96374; 96375; G0378; J1756; J2405; J2470